=== PATIENT | female | born 1990 | race Caucasian/White ===

== ENCOUNTER 2018-09-08 04:54 | Emergency (ER) | payer SELFPAY ==
[2018-09-08] MEDS ORDERED: Diphtheria,Pertussis(Acell),Tetanus Vaccine 0.5 ML SDV IM ONE (05:05)
[2018-09-08] MEDS ORDERED: HYDROmorphone 0.5 MG/0.5 ML Syringe IVPUSH ONE ×2 (05:09→05:57)
[2018-09-08] MEDS ORDERED: LORazepam 2 MG/ML SDV IVPUSH ONE (05:11)
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
== END 2018-09-08 07:15 ==
LOC: JP.ED 04:54
DX: S12.600A Unspecified displaced fracture of seventh cervical vertebra, initial encounter for closed fracture (principal); R53.1 Weakness; M54.5 Low back pain; Z23 Encounter for immunization; Z79.899 Other long term (current) drug therapy; V49.9XXA Car occupant (driver) (passenger) injured in unspecified traffic accident, initial encounter
CPT/HCPCS: 36415; 51702; 70450; 72125; 80053; 80305; 81001; 81025; 85025; 90471; 90715; 96374; 96375; 96376; 99284; J1170; J2060